=== PATIENT | male | born 1950 | race Caucasian/White ===

== ENCOUNTER 2021-08-14 22:25 | Emergency (ER) | payer OTHER ==
[2021-08-14 23:05] LABS: BASOPHIL 0.4 % (0-2); EOSINOPHIL 1.7 % (0-7); HCT 46.1 % (42.0-52.0); HGB 15.5 g/dl (13.2-18.0); LYMPHOCYTE 37.7 % (15-48); MCHC 33.6 g/dL (32.0-36.0); MCV 89.2 fL (78.0-100.0); MONOCYTE 9.3 % (0-12); MPV 9.9 fL (6.0-9.5); NEUTROPHIL 50.6 % (41-80); NRBC 0; PLT 343 K/uL (150-400); RBC 5.17 M/uL (4.70-6.00); RDW 14.1 % (11.5-14.0); WBC 9.8 K/uL (4.0-10.5)
[2021-08-14 23:34] LABS: BUN/CREAT RATIO (CALC) 18.5 RATIO; CREATININE 1.3 mg/dL (0.67-1.17); POTASSIUM 3.4 mmol/L (3.5-5.1)
[2021-08-15 00:21] LABS: INR 1.16 (0.9-1.2); PROTHROMBIN TIME 14.2 SECONDS (11.8-13.4); PTT 30.9 SECONDS (24.4-34.7)
== END 2021-08-15 06:48 | disposition other institution (70) ==
LOC: FER 22:25
PROVIDERS: Internal Medicine
DX: I21.4 Non-ST elevation (NSTEMI) myocardial infarction (principal); N17.9 Acute kidney failure, unspecified; I10 Essential (primary) hypertension; Z79.899 Other long term (current) drug therapy; Z20.822 Contact with and (suspected) exposure to COVID-19
CPT/HCPCS: 36415; 71045; 80048; 83880; 84145; 84484; 85025; 85610; 85730; 93005; J1644; U0002